=== PATIENT | female | born 1990 | race Two or more races ===

== ENCOUNTER 2023-09-06 10:20 | Emergency (ER) | payer OTHER ==
[~2023-09-06] VITALS: Ht 160 cm; Wt 97.5 kg
[2023-09-06] MEDS ORDERED: KETOROLAC TROMETHAMINE 30 MG VIAL IM STA (12:27)
== END 2023-09-06 14:57 | disposition home or self-care (01) ==
LOC: ER 10:21
DX: M54.9 Dorsalgia, unspecified (principal); W10.0XXA Fall (on)(from) escalator, initial encounter; Y93.89 Activity, other specified; Y92.218 Other school as the place of occurrence of the external cause; Z91.013 Allergy to seafood; Z91.040 Latex allergy status; Z91.018 Allergy to other foods